=== PATIENT | male | born 1935 | race Caucasian/White ===

== ENCOUNTER 2017-01-20 08:56 | Outpatient (CLI) | payer MEDICARE, BC | END 2017-01-20 08:57 | disposition home or self-care (01) | DX: E11.9 Type 2 diabetes mellitus without complications (principal); I25.10 Atherosclerotic heart disease of native coronary artery without angina pectoris; I10 Essential (primary) hypertension; E78.5 Hyperlipidemia, unspecified ==

== ENCOUNTER 2017-07-11 09:16 | Outpatient (CLI) | payer MEDICARE, BC ==
[2017-07-11 18:57] LABS: ALBUMIN/GLOBULIN RATIO 1.4 (1.0-2.2); BILIRUBIN,TOTAL 0.8 mg/dL (0.2-1.0); CALCIUM 9.4 mg/dL (8.5-10.3); CREATININE 0.9 mg/dL (0.6-1.2); POTASSIUM 4.2 mmol/L (3.5-5.0); TOTAL PROTEIN 7.2 g/dL (6.7-8.2)
[2017-07-11 20:36] LABS: HEMOGLOBIN A1C 0.84 g/dL
== END 2017-07-11 09:17 | disposition home or self-care (01) ==
LOC: LAB.F 09:16
PROVIDERS: ATTEND Family Medicine
DX: F01.50 Vascular dementia, unspecified severity, without behavioral disturbance, psychotic disturbance, mood disturbance, and anxiety (principal); E11.9 Type 2 diabetes mellitus without complications; I25.10 Atherosclerotic heart disease of native coronary artery without angina pectoris; I10 Essential (primary) hypertension; E78.5 Hyperlipidemia, unspecified
CPT/HCPCS: 36415; 80053; 82043; 83036

== ENCOUNTER 2017-10-31 09:46 | Outpatient (CLI) | payer MEDICARE, BC ==
[2017-10-31 18:05] LABS: HB2 TOTAL 16.5 g/dL; HEMOGLOBIN A1C 0.79 g/dL; HEMOGLOBIN A1C % 6.5 % (4.6-6.2)
[2017-10-31 18:17] LABS: ALBUMIN 4.3 g/dL (3.2-5.5); ALBUMIN/GLOBULIN RATIO 1.4 (1.0-2.2); BILIRUBIN,TOTAL 0.7 mg/dL (0.2-1.0); CALCIUM 9.4 mg/dL (8.5-10.3); CREATININE 0.9 mg/dL (0.6-1.2); TOTAL PROTEIN 7.4 g/dL (6.7-8.2)
== END 2017-10-31 09:47 | disposition home or self-care (01) ==
LOC: LAB.F 09:46
PROVIDERS: ATTEND Family Medicine
DX: F01.50 Vascular dementia, unspecified severity, without behavioral disturbance, psychotic disturbance, mood disturbance, and anxiety (principal); E11.9 Type 2 diabetes mellitus without complications; I25.10 Atherosclerotic heart disease of native coronary artery without angina pectoris; I10 Essential (primary) hypertension; E78.5 Hyperlipidemia, unspecified
CPT/HCPCS: 36415; 80053; 82043; 83036

== ENCOUNTER 2018-01-10 02:14 | Outpatient (CLI) | payer MEDICARE, BC | END 2018-01-10 02:15 | disposition critical access hospital (66) | LOC: EMS 02:14 | PROVIDERS: ATTEND Surgery | DX: R53.1 Weakness (principal) | CPT/HCPCS: A0425; A0427 ==

== ENCOUNTER 2018-01-10 02:36 | Emergency (ER) | payer MEDICARE, BC ==
[2018-01-10 03:10] LABS: BASOPHILS % (AUTO) 0.3 %; EOSINOPHILS # (AUTO) 0.1 10^3/uL (0.0-0.7); HGB - HEMOGLOBIN 14.6 g/dL (14.0-18.0); LYMPHOCYTES % (AUTO) 8.5 %; MEAN CORPUSCULAR HEMOGLOBIN 31.1 pg (27.0-31.0); MEAN CORPUSCULAR HGB CONC 34.3 g/dL (32.0-36.0); MEAN CORPUSCULAR VOLUME 90.9 fL (80.0-94.0); MONOCYTES # (AUTO) 0.9 10^3/uL (0.0-1.0); MONOCYTES % (AUTO) 7.5 %; NEUTROPHILS # (AUTO) 9.7 10^3/uL (1.5-6.6); NEUTROPHILS % (AUTO) 82.7 %; PLT - PLATELET COUNT 235 10^3/uL (130-450); RED BLOOD COUNT 4.69 10^6/uL (4.70-6.10); RED CELL DISTRIBUTION WIDTH 12.8 % (12.0-15.0); WHITE BLOOD COUNT 11.8 x10^3/uL (4.8-10.8)
[2018-01-10 03:26] LABS: BILIRUBIN,URINE NEGATIVE (NEGATIVE); GLUCOSE, URINE (UA) NEGATIVE (NEGATIVE); KETONES,URINE (UA) NEGATIVE (NEGATIVE); LEUKOCYTE ESTERASE, URINE NEGATIVE (NEGATIVE); NITRITE,URINE NEGATIVE (NEGATIVE); OCCULT BLOOD,URINE NEGATIVE (NEGATIVE); PH,URINE 6.5 PH (5.0-7.5); PROTEIN,URINE NEGATIVE (NEGATIVE); UROBILINOGEN,URINE 0.2 (NORMAL) E.U./dL (NORMAL)
[2018-01-10 03:27] LABS: CLARITY,URINE CLEAR (CLEAR)
[2018-01-10 03:30] LABS: ALBUMIN 4.1 g/dL (3.2-5.5); ALBUMIN/GLOBULIN RATIO 1.2 (1.0-2.2); BILIRUBIN,TOTAL 0.8 mg/dL (0.2-1.0); CALCIUM 9.5 mg/dL (8.5-10.3); CREATININE 0.8 mg/dL (0.6-1.2); TOTAL PROTEIN 7.5 g/dL (6.7-8.2)
--- NOTE | 2018-01-10 03:32 | ED Physician Documentation ---
PD HPI SYNCOPE - Stated complaint Stated Complaint: SYNCOPE - Chief complaint Chief Complaint: Neuro - History obtained from History obtained from: Patient, Family, EMS - History of Present Illness Witnessed: Witnessed Timing - onset: Today Preceding symptoms: Diaphoresis, Generalized weakness Contributing factors: Just stood up Injury occurred: No: Fell, Head injury Similar symptoms before: Work up / diagnostics Recently seen: Not recently seen - Additional information Additional information: Patient is an 82 year old male with multiple co morbidities including previous cerebral bleeds, and diabetes who was brought in for near syncope. According to and ems patient got up to go to the bathroom and he felt light headed. He tried to walk but he called out to his that he wasn't going to make it. Patient was diaphoretic but was able to help him to the ground without actually falling. Patient is ok DNI/DNR and would only want limited interventions. Review of Systems Constitutional: denies: Fever, Chills Eyes: reports: Reviewed and negative Ears: reports: Reviewed and negative Nose: reports: Reviewed and negative Cardiac: denies: Chest pain / pressure, Palpitations, Calf pain Respiratory: denies: Dyspnea, Cough, Wheezing GI: denies: Nausea, Vomiting : reports: Reviewed and negative Skin: denies: Rash, Lesions Musculoskeletal: denies: Extremity swelling Neurologic: reports: Near syncope. denies: Generalized weakness, Focal weakness , Syncope, Head injury, LOC Immunocompromised: denies: Immunocompromised PD PAST MEDICAL HISTORY - Past Medical History Cardiovascular: Hypertension, IA Respiratory: None Endocrine/Autoimmune: Type 2 diabetes GI: None : None HEENT: Chronic hearing loss Psych: None Musculoskeletal: None Derm: None - Past Surgical History Past Surgical History: Yes General: Appendectomy, Colonoscopy Ortho: Knee replacement Cardiovascular: CABG Neuro: Other HEENT: Cataracts - Present Medications Home Medications: Ambulatory Orders Medication Instructions Recorded Confirmed Aspirin 81 mg PO Q24HR@2100 10/02/13 10/31/14 Insulin Glargine [Lantus] 18 unit SUBQ QPM 10/02/13 10/31/14 Lisinopril 20 mg PO BID 10/02/13 10/31/14 Lovastatin 40 mg PO Q24HR@2100 10/02/13 10/31/14 Metformin HCl 850 mg PO BID 10/02/13 10/31/14 Metoprolol Succinate [Toprol Xl] 50 mg PO DAILY 10/02/13 10/31/14 amLODIPine [Norvasc] 10 mg PO DAILY 10/31/14 10/31/14 - Allergies Allergies/Adverse Reactions: Allergies Allergy/AdvReac Type Severity Reaction Status Date / Time Sulfa (Sulfonamide Allergy Unknown unk Verified 01/10/18 02:41 Antibiotics) - Social History Does the pt smoke?: No Smoking Status: Never smoker Does the pt drink ETOH?: Yes Does the pt have substance abuse?: No - POLST Patient has POLST: Yes PD ED PE NORMAL - Vitals Vital signs reviewed: Yes - General General: Alert and oriented X 3, No acute distress - HEENT HEENT: Atraumatic - Neck Neck: Supple, no meningeal sign - Cardiac Cardiac: RRR - Respiratory Respiratory: No respiratory distress, Clear bilaterally - Abdomen Abdomen: Soft, Non tender, Non distended - Derm Derm: Normal color - Neuro Neuro: Alert and oriented X 3, outreach director 2-12 intact, No motor deficit, No sensory deficit, Normal speech Eye Opening: Spontaneous Motor: Obeys Commands Verbal: Oriented GCS Score: 15 - Psych Psych: Normal mood PD ED PE EXPANDED - HEENT HEENT: Dry mucous membranes Results - Vitals Vitals: Vital Signs - 24 hr 01/10/18 02:38 Temperature 36.5 C Heart Rate 71 Respiratory 18 Rate Blood Pressure 144/89 H O2 Saturation 96 Oxygen O2 Source [Without Activity] Room air O2 Source Room air - EKG (time done) 0242 Rate: Rate (enter#) (70) Rhythm: NSR [place]: Anterior hemiblock QRS: Normal Compare to prior EKG: Unchanged from prior EKG - Labs Labs: Laboratory Tests 01/10/18 01/10/18 01/10/18 03:04 03:04 03:04 WBC 11.8 H RBC 4.69 L Hgb 14.6 Hct 42.6 MCV 90.9 MCH 31.1 H MCHC 34.3 RDW 12.8 Plt Count 235 MPV 7.0 L Neut # 9.7 H Lymph # 1.0 L Mill[place] # 0.9 Eos # 0.1 Baso # 0.0 Absolute Nucleated RBC 0.01 Nucleated RBC % 0.1 Sodium 130 L Potassium 4.1 Chloride 93 L Carbon Dioxide 27 Anion Gap 10.0 BUN 16 Creatinine 0.8 Estimated GFR (MDRD) 93 Glucose 155 H Calcium 9.5 Total Bilirubin 0.8 AST 20 ALT 17 Alkaline Phosphatase 47 Troponin I < 0.04 Total Protein 7.5 Albumin 4.1 Globulin 3.4 Albumin/Globulin Ratio 1.2 Lipase 12 L Urine Color Urine Clarity Urine pH Ur Specific [place] Urine Protein Urine Glucose (UA) Urine Ketones Urine Occult Blood Urine Nitrite Urine Bilirubin Urine Urobilinogen Ur Leukocyte Esterase Ur Microscopic Review Urine Culture Comments 01/10/18 03:19 WBC RBC Hgb Hct MCV MCH MCHC RDW Plt Count MPV Neut # Lymph # [place] # Eos # Baso # Absolute Nucleated RBC Nucleated RBC % Sodium Potassium Chloride Carbon Dioxide Anion Gap BUN Creatinine Estimated GFR (MDRD) Glucose Calcium Total Bilirubin AST ALT Alkaline Phosphatase Troponin I Total Protein Albumin Globulin Albumin/Globulin Ratio Lipase Urine Color YELLOW Urine Clarity CLEAR Urine pH 6.5 Ur Specific [place] 1.015 Urine Protein NEGATIVE Urine Glucose (UA) NEGATIVE Urine Ketones NEGATIVE Urine Occult Blood NEGATIVE Urine Nitrite NEGATIVE Urine Bilirubin NEGATIVE Urine Urobilinogen 0.2 (NORMAL) Ur Leukocyte Esterase NEGATIVE Ur Microscopic Review NOT INDICATED Urine Culture Comments NOT INDICATED PD MEDICAL DECISION MAKING - ED course Complexity details: reviewed old records, reviewed results, re-evaluated patient , considered differential, d/w patient, d/w family ED course: Patient was seen and examined at bedside. Patient was well appearing and in no acute distress. ekg was performed and was unchanged from prior. A discussion was had with the patient and family about what types of intervention and work up they were interested. They stated that they would not want an extensive work up and if there was not a quick easy fix of something they would go home and follow up with their doctor. when patient's labs came back they were at the patient's baseline. Patient and family were offered admission but stated that they would prefer to go home. Patient denied any complaints at discharge and was stable for outpatient follow up. Departure - Departure Disposition: 01 Home, Self Care Clinical Impression: Vasovagal near-syncope Condition: Good Instructions: ED Near Syncope Unkn Follow-Up: Ryan Blackmon MD [Primary Care Provider] - Comments: Your diagnostics today were within normal limits. It is difficult to say what exactly caused your symptoms. It is likely due at least in part from a vaso- vagal episode. It is important that you stay well hydrated and get up in steps. Go from lying to sitting, then sitting to standing letting your blood pressure normalize in between. You could also consider keeping a urinal near bedside. You should follow up with your doctor this week. You may return to the emergency department at any time for new, worsening or uncontrollable symptoms.
[2018-01-10 04:13] VITALS: BP 118/90
== END 2018-01-10 04:13 | disposition home or self-care (01) ==
LOC: EDUNIT# → ED 02:36
DX: R55 Syncope and collapse (principal); E11.9 Type 2 diabetes mellitus without complications; Z79.4 Long term (current) use of insulin; Z66 Do not resuscitate; I10 Essential (primary) hypertension; I25.2 Old myocardial infarction; I25.10 Atherosclerotic heart disease of native coronary artery without angina pectoris; Z95.1 Presence of aortocoronary bypass graft; Z79.82 Long term (current) use of aspirin
CPT/HCPCS: 36415; 80053; 81001; 81003; 83690; 84484; 85025; 87086; 93005; 99284

== ENCOUNTER 2018-04-10 08:58 | Outpatient (CLI) | payer MEDICARE, BC ==
[2018-04-10 18:08] LABS: ALBUMIN 4.2 g/dL (3.2-5.5); ALBUMIN/GLOBULIN RATIO 1.4 (1.0-2.2); BILIRUBIN,TOTAL 0.7 mg/dL (0.2-1.0); CALCIUM 9.7 mg/dL (8.5-10.3); CREATININE 0.9 mg/dL (0.6-1.2); TOTAL PROTEIN 7.2 g/dL (6.7-8.2)
[2018-04-10 18:38] LABS: HB2 TOTAL 17.3 g/dL; HEMOGLOBIN A1C 0.82 g/dL; HEMOGLOBIN A1C % 6.5 % (4.6-6.2)
== END 2018-04-10 08:59 | disposition home or self-care (01) ==
LOC: LAB.F 08:58
PROVIDERS: ATTEND Family Medicine
DX: F01.50 Vascular dementia, unspecified severity, without behavioral disturbance, psychotic disturbance, mood disturbance, and anxiety (principal); E11.9 Type 2 diabetes mellitus without complications; R53.83 Other fatigue; I10 Essential (primary) hypertension
CPT/HCPCS: 36415; 80053; 83036

== ENCOUNTER 2018-09-22 09:33 | Outpatient (CLI) | payer MEDICARE, BC ==
[2018-09-22 17:49] LABS: BUN - BLOOD UREA NITROGEN 22 mg/dL (6-20); CALCIUM 9.8 mg/dL (8.5-10.3); CARBON DIOXIDE - CO2 27 mmol/L (21-32); CHLORIDE 101 mmol/L (101-111); CHOL/HDL RATIO 2.7 (<5.0); CHOLESTEROL 130 mg/dL; CREATININE 0.9 mg/dL (0.6-1.2); GFR - MDRD 81 (>89); GLUCOSE 118 mg/dL (70-100); HDL CHOLESTEROL 49 mg/dL; LDL CHOLESTEROL,CALCULATED 62 mg/dL; LDL/HDL RATIO 1.3 (<3.6); SODIUM 137 mmol/L (135-145); VLDL CHOLESTEROL 19 mg/dL
[2018-09-22 18:10] LABS: HB2 TOTAL 16.7 g/dL; HEMOGLOBIN A1C 0.78 g/dL; HEMOGLOBIN A1C % 6.4 % (4.6-6.2)
== END 2018-09-22 09:34 | disposition home or self-care (01) ==
LOC: LAB.F 09:33
PROVIDERS: ATTEND Family Medicine
DX: E11.9 Type 2 diabetes mellitus without complications (principal); E78.5 Hyperlipidemia, unspecified; I10 Essential (primary) hypertension
CPT/HCPCS: 36415; 80048; 80061; 83036; 83721

== ENCOUNTER 2019-04-04 07:52 | Outpatient (CLI) | payer MEDICARE, BC ==
[2019-04-04 11:41] LABS: CALCIUM 9.4 mg/dL (8.5-10.3); CREATININE 0.9 mg/dL (0.6-1.2)
[2019-04-04 11:47] LABS: HB2 TOTAL 14.7 g/dL; HEMOGLOBIN A1C 0.7 g/dL; HEMOGLOBIN A1C % 6.5 % (4.6-6.2)
[2019-04-04 11:55] LABS: MICROALBUMIN,URINE < 0.3 mg/dL (0-300.0)
== END 2019-04-04 07:53 | disposition home or self-care (01) ==
LOC: LAB.F 07:52
PROVIDERS: ATTEND Family Medicine
DX: E11.9 Type 2 diabetes mellitus without complications (principal)
CPT/HCPCS: 36415; 80048; 82043; 82570; 83036

== ENCOUNTER 2019-10-11 09:51 | Outpatient (CLI) | payer MEDICARE, BC ==
[2019-10-11 10:27] LABS: ALBUMIN/GLOBULIN RATIO 1.3 (1.0-2.2); ALKALINE PHOSPHATASE 46 IU/L (42-121); ALT ALANINE AMINOTRANSFERASE 13 IU/L (10-60); AST ASPARTATE AMINOTRANSFERASE 16 IU/L (10-42); BILIRUBIN,TOTAL 0.6 mg/dL (0.2-1.0); BUN - BLOOD UREA NITROGEN 18 mg/dL (6-20); CALCIUM 9.2 mg/dL (8.5-10.3); CARBON DIOXIDE - CO2 28 mmol/L (21-32); CHLORIDE 99 mmol/L (101-111); CHOL/HDL RATIO 2.7 (<5.0); CHOLESTEROL 124 mg/dL; CREATININE 0.9 mg/dL (0.6-1.2); GFR - MDRD 81 (>89); GLUCOSE 121 mg/dL (70-100); HDL CHOLESTEROL 46 mg/dL; LDL CHOLESTEROL,CALCULATED 58 mg/dL; LDL/HDL RATIO 1.3 (<3.6); SODIUM 135 mmol/L (135-145); TOTAL PROTEIN 7.1 g/dL (6.7-8.2); VLDL CHOLESTEROL 20 mg/dL
[2019-10-11 10:32] LABS: HB2 TOTAL 13.9 g/dL; HEMOGLOBIN A1C 0.75 g/dL; HEMOGLOBIN A1C % 7.1 % (4.6-6.2)
== END 2019-10-11 09:52 | disposition home or self-care (01) ==
LOC: LAB 09:51
PROVIDERS: ATTEND Family Medicine
DX: E11.69 Type 2 diabetes mellitus with other specified complication (principal); E78.5 Hyperlipidemia, unspecified; I10 Essential (primary) hypertension
CPT/HCPCS: 36415; 80053; 80061; 83036; 83721